=== PATIENT | female | born 1985 ===

== ENCOUNTER 2018-09-30 13:49 | Inpatient (IN) | payer OTHER ==
[~2018-09-30] VITALS: Ht 154.9 cm; Wt 110.2 kg
== END 2018-10-08 14:42 | disposition home or self-care (01) | DRG 785 ==
LOC: OB/GYN 10-03 12:09 → O/R 10-05 05:40 → OB/GYN 10-05 05:40
PROVIDERS: ADMIT Obstetrics & Gynecology
PROC: 0UL70ZZ Occlusion of Bilateral Fallopian Tubes, Open Approach (ICD-10-PCS; 2018-10-05)
PROC: 4A0HXFZ Measurement of Products of Conception, Cardiac Rhythm, External Approach (ICD-10-PCS; 2018-10-05)
PROC: 10D00Z1 Extraction of Products of Conception, Low, Open Approach (ICD-10-PCS; principal; 2018-10-05 13:30)
DX: O82 Encounter for cesarean delivery without indication (principal); O24.410 Gestational diabetes mellitus in pregnancy, diet controlled; Z3A.39 39 weeks gestation of pregnancy; Z37.0 Single live birth; Z30.2 Encounter for sterilization